=== PATIENT | female | born 1970 | race Caucasian/White ===

== ENCOUNTER 2016-12-16 22:28 | Emergency (ER) | payer OTHER ==
[~2016-12-16] VITALS: Ht 154.9 cm; Wt 114.1 kg
[~2016-12-16 22:28] MED LIST: ACCOLATE20 MG PO; ADULT LOW DOSE81 M1 PO; ADVAIR 250/501 DISK IH; ALLERGY RELIEF25 MG PO; ASPIR-LOW81 MG PO; AUGMENTIN500 MG PO; Aldactone PO; Aspirin E.C. PO; BENTYL20 MG PO; CITALOPRAM HBR40 MG PO; CLARITIN10 MG PO; CYCLOBENZAPRINE10 MG PO; DILANTIN100 MG PO; Dilantin PO; Ecotrin PO; FLEXERIL10 MG PO; HYDROCHLOROTHIA25 MG PO; HYDRODIURIL,ORE25 MG PO; IBUPROFEN600 MG PO; IBUPROFEN800 MG PO; ISOSORBIDE MONO30 MG PO; Imdur PO; LEVAQUIN500 MG PO; LISINOPRIL2.5 MG PO; LISINOPRIL5 MG PO; LO-DOSE ASPIRIN81 M1 PO; LOPRESSOR25 MG PO; Lopressor PO; MELOXICAM7.5 MG PO; METOPROLOL TART25 MG PO; MOTRIN600 MG PO; MOTRIN800 MG PO; Motrin PO; NAPROSYN500 MG PO; NAPROXEN500 MG PO; NORCO 5/3251 TABLET PO; NORCO 7.5/321 TABLET PO; OMEPRAZOLE40 M1 PO; OXCARBAZEPINE600 MG PO; PERCOCET 5/31 TABLET PO; PHENYTOIN SODI100 M1 PO; PRAVACHOL40 MG PO; PRAVASTATIN SOD40 MG PO; PRILOSEC40 MG PO; PROAIR HFA8.5 GM IH; PROMETHAZINE HC25 M1 PO; PROTONIX20 MG PO; PROZAC40 MG PO; PYRIDIUM200 MG PO; Pravachol PO; SPIRONOLACTONE25 MG PO; TOPROL XL6.25 MG PO; TRAMADOL HCL50 MG PO; TRILEPTAL150 MG PO; TRILEPTAL600 MG PO; Toprol XL PO; ULTRACET1 TABLET PO; ULTRAM50 MG PO; VALIUM5 MG PO; ZAFIRLUKAST20 M1 PO; Zestril,Prinivil PO; celeXA PO
[2016-12-16 22:30] VITALS: BP 164/95
[2016-12-16] MEDS ORDERED: CLEOCIN300 MG PO (22:56)
== END 2016-12-16 23:14 | disposition home or self-care (01) ==
LOC: EME 22:28
DX: L02.213 Cutaneous abscess of chest wall (principal); Z88.8 Allergy status to other drugs, medicaments and biological substances
CPT/HCPCS: 99281; 99284

== ENCOUNTER 2017-01-07 12:40 | Emergency (ER) | payer OTHER ==
[~2017-01-07] VITALS: Ht 154.9 cm; Wt 113.3 kg
[~2017-01-07 12:40] MED LIST changes: +CLEOCIN300 MG PO
[2017-01-07] MEDS ORDERED: MOTRIN600 MG PO (14:39)
[2017-01-07 14:54] VITALS: BP 122/72
== END 2017-01-07 14:56 | disposition home or self-care (01) ==
LOC: EME 12:40
DX: S46.911A Strain of unspecified muscle, fascia and tendon at shoulder and upper arm level, right arm, initial encounter (principal); W18.30XA Fall on same level, unspecified, initial encounter; Y93.E2 Activity, laundry; J45.909 Unspecified asthma, uncomplicated; I10 Essential (primary) hypertension; I25.2 Old myocardial infarction; K21.9 Gastro-esophageal reflux disease without esophagitis; F41.9 Anxiety disorder, unspecified; R56.9 Unspecified convulsions; Z88.7 Allergy status to serum and vaccine
CPT/HCPCS: 73030

== ENCOUNTER 2017-02-24 23:39 | Emergency (ER) | payer OTHER ==
[~2017-02-24] VITALS: Ht 154.9 cm; Wt 106.6 kg
[2017-02-24 23:49] VITALS: BP 112/79
[2017-02-25] MEDS ORDERED: ALLEGRA-D 121 TABLET PO (01:30)
[2017-02-25] MEDS ORDERED: FLONASE16 G1 BOTH NARES (01:30)
== END 2017-02-25 01:47 | disposition home or self-care (01) ==
LOC: EME 23:39
DX: H65.91 Unspecified nonsuppurative otitis media, right ear (principal); Z88.7 Allergy status to serum and vaccine
CPT/HCPCS: 99281; 99283

== ENCOUNTER 2017-03-23 22:00 | Emergency (ER) | payer OTHER ==
[~2017-03-23] VITALS: Ht 154.9 cm; Wt 105.8 kg
[~2017-03-23 22:00] MED LIST changes: +ALLEGRA-D 121 TABLET PO; +FLONASE16 G1 BOTH NARES
[2017-03-23] MEDS ORDERED: GABAPENTIN100 MG PO (23:33)
[2017-03-24 00:13] VITALS: BP 146/76
== END 2017-03-24 00:15 | disposition home or self-care (01) ==
LOC: EME 22:00
DX: G57.92 Unspecified mononeuropathy of left lower limb (principal); G89.29 Other chronic pain; I89.0 Lymphedema, not elsewhere classified; Z88.7 Allergy status to serum and vaccine
CPT/HCPCS: 99281; 99283

== ENCOUNTER → 2017-06-01 | Outpatient (CLI) | payer OTHER ==
[~2017-06-01] MED LIST changes: +GABAPENTIN100 MG PO
== END | disposition home or self-care (01) ==
LOC: CDC 11:14
DX: Z01.810 Encounter for preprocedural cardiovascular examination (principal); M43.16 Spondylolisthesis, lumbar region; I44.7 Left bundle-branch block, unspecified
CPT/HCPCS: 93000

== ENCOUNTER 2017-06-07 06:17 | Day surgery (SDC) | payer OTHER ==
[~2017-06-07] VITALS: Ht 154.9 cm; Wt 104.3 kg
[2017-06-07 07:01] VITALS: BP 148/77
[2017-06-07 13:20] VITALS: BP 122/68
[2017-06-07 14:19] VITALS: BP 121/65
== END 2017-06-07 14:35 | disposition home or self-care (01) ==
LOC: SDC
PROC: 01NB0ZZ Release Lumbar Nerve, Open Approach (ICD-10-PCS; principal; 2017-06-07)
DX: M48.062 Spinal stenosis, lumbar region with neurogenic claudication (principal); M54.16 Radiculopathy, lumbar region; M51.26 Other intervertebral disc displacement, lumbar region; M43.16 Spondylolisthesis, lumbar region; I10 Essential (primary) hypertension; G40.909 Epilepsy, unspecified, not intractable, without status epilepticus; I25.2 Old myocardial infarction; M19.90 Unspecified osteoarthritis, unspecified site; E78.5 Hyperlipidemia, unspecified; E66.9 Obesity, unspecified; Z68.42 Body mass index [BMI] 45.0-49.9, adult; Z79.82 Long term (current) use of aspirin; Z82.49 Family history of ischemic heart disease and other diseases of the circulatory system; Z90.710 Acquired absence of both cervix and uterus; Z90.49 Acquired absence of other specified parts of digestive tract
CPT/HCPCS: 72020; 76000; J0131; J0330; J0690; J1100; J2250; J2405; J2710; J3010; J7643; S0020

== ENCOUNTER 2017-06-28 20:31 | Emergency (ER) | payer OTHER ==
[~2017-06-28] VITALS: Ht 154.9 cm; Wt 106.7 kg
[2017-06-28] MEDS ORDERED: MEDROL DOSEPAK4 MG PO (23:09)
[2017-06-28 23:20] VITALS: BP 126/69
== END 2017-06-28 23:48 | disposition home or self-care (01) ==
LOC: EME 20:31
DX: M54.5 Low back pain (principal); M79.605 Pain in left leg; Z98.890 Other specified postprocedural states; I10 Essential (primary) hypertension; Z79.82 Long term (current) use of aspirin
CPT/HCPCS: J7512

== ENCOUNTER 2017-07-07 21:14 | Emergency (ER) | payer OTHER ==
[~2017-07-07] VITALS: Ht 154.9 cm; Wt 104.9 kg
[~2017-07-07 21:14] MED LIST changes: +MEDROL DOSEPAK4 MG PO
[2017-07-07] MEDS ORDERED: ZITHROMAX Z-PA250 MG PO (22:25)
[2017-07-07] MEDS ORDERED: TESSALON200 MG PO (22:25)
[2017-07-07] MEDS ORDERED: MEDROL DOSEPAK4 MG PO (22:25)
[2017-07-07 22:38] VITALS: BP 122/77
== END 2017-07-07 22:38 | disposition home or self-care (01) ==
LOC: EME 21:14
DX: J20.9 Acute bronchitis, unspecified (principal); Z79.82 Long term (current) use of aspirin; I10 Essential (primary) hypertension; E78.5 Hyperlipidemia, unspecified
CPT/HCPCS: 71046; 94640; 99281; 99283; J7512

== ENCOUNTER 2017-09-30 23:11 | Emergency (ER) | payer OTHER ==
[~2017-09-30] VITALS: Ht 154.9 cm; Wt 103.3 kg
[~2017-09-30 23:11] MED LIST changes: +TESSALON200 MG PO; +ZITHROMAX Z-PA250 MG PO
[2017-09-30 23:39] LABS: HEMATOCRIT 37.1 % (36.0-46.0); HEMOGLOBIN 12.2 G/DL (11.9-15.5); MCH 27.2 PG (29.0-34.0); MCHC 32.9 G/DL (30.0-36.0); MCV 82.8 FL (83-99); PLATELET COUNT 222 K/uL (156-360); RBC DIS.WIDTH-CV 14.9 % (11.8-14.6); RBC DIS.WIDTH-SD 44.8 % (39-53); RED BLOOD COUNT 4.48 M/uL (3.80-5.20); WHITE BLOOD COUNT 11.2 K/uL (4.1-10.2)
[2017-09-30 23:48] LABS: CHLORIDE 103 mEq/L (99-109); POTASSIUM 3.9 mEq/L (3.7-5.4); SODIUM 137 mEq/L (136-147)
[2017-09-30 23:49] LABS: MAGNESIUM 2.2 mg/dL (1.3-2.7)
[2017-09-30 23:50] LABS: GLUCOSE 87 mg/dL (70-99)
[2017-09-30 23:54] LABS: CREATININE 0.7 mg/dL (0.6-1.3); GFR ESTIMATE (CALCULATED) > 59 mL/min/
[2017-09-30 23:55] LABS: UREA NITROGEN (BUN) 14 mg/dL (9-23)
[2017-09-30 23:56] LABS: CREATINE KINASE 580 IU/L (1-294)
[2017-10-01] MEDS ORDERED: NAPROSYN500 MG PO (00:49)
[2017-10-01 01:13] VITALS: BP 113/64
== END 2017-10-01 01:16 | disposition home or self-care (01) ==
LOC: EME → EDBD 23:11 → EME 10-01 01:16
PROVIDERS: Physician Assistant
DX: M62.838 Other muscle spasm (principal); R74.8 Abnormal levels of other serum enzymes; M79.604 Pain in right leg; E78.5 Hyperlipidemia, unspecified; I10 Essential (primary) hypertension; E66.01 Morbid (severe) obesity due to excess calories; Z68.41 Body mass index [BMI] 40.0-44.9, adult; F41.9 Anxiety disorder, unspecified; I25.2 Old myocardial infarction; J45.909 Unspecified asthma, uncomplicated; K21.9 Gastro-esophageal reflux disease without esophagitis
CPT/HCPCS: 80048; 81003; 82550; 83735; 85027; 93971; 99281; 99284

== ENCOUNTER 2017-10-20 01:32 | Emergency (ER) | payer OTHER ==
[~2017-10-20] VITALS: Ht 154.9 cm; Wt 105.2 kg
[2017-10-20 03:33] LABS: APPEARANCE CLEAR ((CLEAR)); BILIRUBIN NEGATIVE; BLOOD MODERATE; COLOR YELLOW ((YELLOW)); GLUCOSE (STRIP) NEGATIVE; KETONES NEGATIVE; LEUKOCYTES TRACE; NITRITE NEGATIVE; PROTEIN (STRIP) NEGATIVE; SPECIFIC GRAVITY 1.018 (1.000-1.030); UROBILINOGEN 0.2 MG/DL (0.2-1.0)
[2017-10-20 03:42] LABS: BACTERIA RARE /HPF; EPITHELIAL CELLS RARE /HPF; MUCUS TRACE /LPF; UCUL ADDED? YES; WHITE BLOOD CELLS 30-40 /HPF (0-5)
[2017-10-20] MEDS ORDERED: KEFLEX500 MG PO (04:20)
[2017-10-20] MEDS ORDERED: PYRIDIUM200 MG PO (04:21)
[2017-10-20 04:41] VITALS: BP 117/68
== END 2017-10-20 04:42 | disposition home or self-care (01) ==
LOC: EME 01:32
PROVIDERS: Emergency Medicine
DX: N39.0 Urinary tract infection, site not specified (principal); G40.909 Epilepsy, unspecified, not intractable, without status epilepticus; Z88.7 Allergy status to serum and vaccine
CPT/HCPCS: 81003; 87077; 87086; 87186; 99281; 99284